=== PATIENT | female | born 1955 | race Caucasian/White ===

== ENCOUNTER 2017-10-08 07:34 | Day surgery (SDC) ==
[~2017-10-08 07:34] MED LIST: BRIMONIDINE TARTRATE 0.2% OPTH SOL OP PRN; BSS WITH EPINEPHRINE OP ONE; DEX-MOXI-KETOR OPTH INJ 1/0.5/0.4 MG/ML IO ONE; LIDOCAINE 1% 20 ML MDV ID STA; LIDOCAINE 1%/PHENYLEPHRINE 1.5% BSS (SURGERY) INTRAOCULA ONE; ZOFRAN 4 MG/2 ML IVP ONE
[2017-10-08] MEDS: CYCLOGYL 2% OPTH OP PRN ×3 (07:45→07:55)
[2017-10-08] MEDS: BETADINE OPTH PREP OP PRN ×2 (07:45→08:13)
[2017-10-08] MEDS: TETRACAINE 0.5% UNIT-DOSE OP PRN ×2 (07:45→08:13)
[2017-10-08] MEDS ORDERED: ALBUTEROL 0.083% NEB NEB STA (08:05)
[2017-10-08] MEDS ORDERED: VERSED ONE (08:45)
[2017-10-08 13:28] VITALS: BP 132/67
== END 2017-10-08 09:30 | disposition home or self-care (01) ==
LOC: SURG 07:34
PROVIDERS: ATTEND Ophthalmology
DX: H25.813 Combined forms of age-related cataract, bilateral (principal)
CPT/HCPCS: 94640

== ENCOUNTER 2017-10-22 07:49 | Day surgery (SDC) ==
[2017-10-22] MEDS: TETRACAINE 0.5% UNIT-DOSE OP PRN ×2 (08:23→08:59)
[2017-10-22] MEDS: BETADINE OPTH PREP OP PRN ×2 (08:23→09:00)
[2017-10-22] MEDS: CYCLOGYL 2% OPTH OP PRN ×3 (08:24→08:34)
[2017-10-22] MEDS ORDERED: BRIMONIDINE TARTRATE 0.2% OPTH SOL OP PRN (08:28)
[2017-10-22] MEDS ORDERED: BSS WITH EPINEPHRINE OP ONE (08:28)
[2017-10-22] MEDS ORDERED: ZOFRAN 4 MG/2 ML IVP ONE (08:28)
[2017-10-22] MEDS ORDERED: LIDOCAINE 1%/PHENYLEPHRINE 1.5% BSS (SURGERY) INTRAOCULA ONE (08:28)
[2017-10-22] MEDS ORDERED: LIDOCAINE 1% 20 ML MDV ID STA (08:28)
[2017-10-22] MEDS ORDERED: DEX-MOXI-KETOR OPTH INJ 1/0.5/0.4 MG/ML IO ONE (08:28)
[2017-10-22] MEDS ORDERED: DIPRIVAN 20 ML VIAL IVP ONE (09:05)
[2017-10-22] MEDS ORDERED: VERSED ONE (09:05)
[2017-10-24 15:05] VITALS: BP 121/67; TEMP 98.6
== END 2017-10-22 09:50 | disposition home or self-care (01) ==
LOC: SURG 07:49
PROVIDERS: ATTEND Ophthalmology
DX: H25.811 Combined forms of age-related cataract, right eye (principal)